=== PATIENT | male | born 1995 | race Caucasian/White ===

== ENCOUNTER → 2017-04-23 | Outpatient (CLI) | payer BC ==
--- NOTE | 2017-04-23 13:10 | REP ---
Clinical: Shortness of breath. Technique: PA and lateral. Comparison: None. Findings: Mediastinum and cardiac silhouette are normal. Ill-defined increased perihilar markings and suspected scattered peribronchial thickening may reflect underlying bronchitis and/or reactive airway disease. No focal consolidation, effusion, or pneumothorax. Skeletal structures are intact. Impression: Cannot exclude bronchitis versus reactive airway disease. No focal consolidation. Signed by Drew Perez MD 04/23/2017 01:02 P
--- NOTE | 2017-04-23 13:54 | REP ---
Cervical spine series: Seven views. History: Tingling in the hands. Frontal neck soreness. No comparison imaging. Findings: Lateral views done in flexion/extension and neutral position show preserved vertebral body heights and normal alignment. No subluxation or instability is seen. Disc spaces are maintained. Oblique radiographs demonstrate intact neural foramina and normally aligned facets bilaterally at each cervical level. AP and open mouth odontoid views are unremarkable. Impression: Negative cervical spine radiographs. Signed by Tremayne White MD 04/23/2017 03:51 P
== END ==
LOC: M WUC 12:37
PROVIDERS: ATTEND Nurse Practitioner Family
DX: R06.02 Shortness of breath (principal); R20.2 Paresthesia of skin

== ENCOUNTER 2019-11-16 12:10 | Emergency (ER) | payer BC ==
[~2019-11-16] VITALS: Ht 172.7 cm; Wt 80.1 kg
[2019-11-16 12:10] VITALS: BP 126/83
[2019-11-16] MEDS ORDERED: VENTAER INH (12:40)
== END 2019-11-16 12:51 | disposition home or self-care (01) ==
LOC: M ED 12:10
DX: J02.9 Acute pharyngitis, unspecified (principal); J98.01 Acute bronchospasm; J45.909 Unspecified asthma, uncomplicated

== ENCOUNTER → 2020-07-31 | Outpatient (CLI) | payer SELFPAY ==
[~2020-07-31] MED LIST: VENTAER INH
== END ==
LOC: M LABSMTC 13:08
PROVIDERS: ATTEND Pediatrics
DX: Z20.828 Contact with and (suspected) exposure to other viral communicable diseases (principal)

== ENCOUNTER → 2023-05-13 | Outpatient (REF) | payer OTHER ==
[2023-05-13 18:16] LABS: BASO # 0.1 10^3/uL (0.0-0.2); BASO % 0.8 % (0.0-1.0); EOS # 0.3 10^3/uL (0.0-0.5); EOS % 5.7 % (0.0-3.0); HEMOGLOBIN 15.5 g/dl (13.5-17.5); LYMPH % 32.8 % (24.0-44.0); MEAN CORPUSCULAR HEMOGLOBIN 31.4 pg (27.0-33.0); MEAN CORPUSCULAR VOLUME 95.3 fl (80.0-96.0); MONO # 0.4 10^3/uL (0.0-0.8); MONO % 7.2 % (2.0-8.0); NEUTROPHILS # 3.2 10^3/uL (1.5-8.5); NEUTROPHILS % 52.8 % (36.0-66.0); PLATELET COUNT, AUTOMATED 248 10^3/uL (150-450); RED BLOOD COUNT 4.93 10^6/uL (4.30-6.10)
[2023-05-13 18:44] LABS: FREE T4 0.85 NG/DL (0.89-1.76); LITHIUM LEVEL < 0.10 MMOL/L (1.0-1.20)
[2023-05-13 18:46] LABS: ALBUMIN 4.4 G/DL (3.2-5.2); ALKALINE PHOSPHATASE 89 U/L (46-116); ALT/SGPT 101 U/L (7.0-40); AST/SGOT 26 U/L (<34); BILIRUBIN,TOTAL 0.6 MG/DL (0.3-1.2); BLOOD UREA NITROGEN 14 MG/DL (9-23); CALCIUM LEVEL 9.2 MG/DL (8.5-10.1); CARBON DIOXIDE LEVEL 31 MMOL/L (20-31); CHLORIDE LEVEL 107 MMOL/L (98-107); CHOLESTEROL LEVEL 205 MG/DL (<200); CHOLESTEROL RISK RATIO 5.02 (<5); CREATININE FOR GFR 0.83 MG/DL (0.70-1.30); GLOMERULAR FILTRATION RATE > 60.0 (>60); GLUCOSE, FASTING 97 MG/DL (60-100); HDL CHOLESTEROL 40.8 MG/DL (>40); LDL CHOLESTEROL 149.8 MG/DL (<100); NON-HDL-C 164.2 MG/DL; POTASSIUM SERUM 5.1 MMOL/L (3.5-5.1); SODIUM LEVEL 143 MMOL/L (136-145); THYROID STIMULATING HORMONE 2.028 uIU/ML (0.55-4.78); TRIGLYCERIDES LEVEL 72 MG/DL (<150)
== END ==
LOC: M SFHCCLAY 10:16
PROVIDERS: ATTEND Nurse Practitioner Family
DX: F32.A Depression, unspecified (principal); R23.9 Unspecified skin changes; J45.20 Mild intermittent asthma, uncomplicated; F41.9 Anxiety disorder, unspecified; Z13.220 Encounter for screening for lipoid disorders

== ENCOUNTER → 2023-11-19 | Outpatient (REF) | payer OTHER ==
[2023-11-19 12:29] LABS: ALBUMIN 4.1 G/DL (3.2-5.2); ALKALINE PHOSPHATASE 76 U/L (46-116); ALT/SGPT 72 U/L (7.0-40); AST/SGOT 24 U/L (<34); BILIRUBIN,TOTAL 0.5 MG/DL (0.3-1.2); BLOOD UREA NITROGEN 12 MG/DL (9-23); CALCIUM LEVEL 8.5 MG/DL (8.5-10.1); CARBON DIOXIDE LEVEL 29 MMOL/L (20-31); CHLORIDE LEVEL 109 MMOL/L (98-107); CREATININE FOR GFR 0.84 MG/DL (0.70-1.30); GLOMERULAR FILTRATION RATE > 60.0 (>60); GLUCOSE, FASTING 108 MG/DL (60-100); POTASSIUM SERUM 4.4 MMOL/L (3.5-5.1); SODIUM LEVEL 143 MMOL/L (136-145); TOTAL PROTEIN 6.4 G/DL (5.7-8.2)
[2023-11-19 13:29] LABS: LITHIUM LEVEL 0.28 MMOL/L (1.0-1.20)
== END ==
LOC: M SFHCCLAY 07:07
PROVIDERS: ATTEND Nurse Practitioner Family
DX: F32.A Depression, unspecified (principal)

== ENCOUNTER → 2023-11-25 | Outpatient (REF) | payer OTHER ==
[2023-11-25 18:51] LABS: ALBUMIN 3.9 G/DL (3.2-5.2); ALKALINE PHOSPHATASE 77 U/L (46-116); ALT/SGPT 86 U/L (7.0-40); AST/SGOT 21 U/L (<34); BILIRUBIN,TOTAL 0.4 MG/DL (0.3-1.2); BLOOD UREA NITROGEN 13 MG/DL (9-23); CALCIUM LEVEL 8.9 MG/DL (8.5-10.1); CARBON DIOXIDE LEVEL 30 MMOL/L (20-31); CHLORIDE LEVEL 107 MMOL/L (98-107); CREATININE FOR GFR 0.75 MG/DL (0.70-1.30); GLOMERULAR FILTRATION RATE > 60.0 (>60); GLUCOSE, FASTING 95 MG/DL (60-100); POTASSIUM SERUM 4.4 MMOL/L (3.5-5.1); SODIUM LEVEL 142 MMOL/L (136-145); TOTAL PROTEIN 6.6 G/DL (5.7-8.2)
== END ==
LOC: M SFHCCLAY 09:51
PROVIDERS: ATTEND Nurse Practitioner Family
DX: R74.8 Abnormal levels of other serum enzymes (principal)

== ENCOUNTER → 2023-12-23 | Outpatient (CLI) | payer OTHER | LOC: M RAD 08:00 | PROVIDERS: ATTEND Nurse Practitioner Family | DX: K76.0 Fatty (change of) liver, not elsewhere classified (principal); R74.8 Abnormal levels of other serum enzymes ==

== ENCOUNTER 2024-05-07 02:51 | Emergency (ER) | payer OTHER ==
[~2024-05-07] VITALS: Ht 172.7 cm; Wt 80.0 kg
[2024-05-07] MEDS ORDERED: LITH150C (02:59)
[2024-05-07] MEDS ORDERED: SERTRALINE (02:59)
[2024-05-07 03:05] VITALS: TEMP 96.8
[2024-05-07] MEDS: KETOROLAC 30 MG/ML 1ML VIAL IV ONE (04:05)
[2024-05-07] MEDS: ONDANSETRON 4MG 2ML VIAL IV ONE (04:06)
[2024-05-07 04:10] LABS: BASO # 0.1 10^3/uL (0.0-0.2); BASO % 0.7 % (0.0-1.0); EOS # 0.3 10^3/uL (0.0-0.5); EOS % 2.6 % (0.0-3.0); HEMATOCRIT 44.5 % (42.0-52.0); HEMOGLOBIN 14.9 g/dl (13.5-17.5); LYMPH # 1.7 10^3/uL (1.5-5.0); LYMPH % 16.9 % (24.0-44.0); MEAN CORPUSCULAR HEMOGLOBIN 31.4 pg (27.0-33.0); MEAN CORPUSCULAR HGB CONC 33.5 g/dl (32.0-36.5); MEAN CORPUSCULAR VOLUME 93.9 fl (80.0-96.0); MONO # 0.6 10^3/uL (0.0-0.8); NEUTROPHILS # 7.2 10^3/uL (1.5-8.5); NEUTROPHILS % 71.9 % (36.0-66.0); PLATELET COUNT, AUTOMATED 232 10^3/uL (150-450); RED BLOOD COUNT 4.74 10^6/uL (4.30-6.10); WHITE BLOOD COUNT 10.1 10^3/uL (4.0-10.0)
[2024-05-07 04:42] LABS: ALBUMIN 3.9 G/DL (3.2-5.2); ALKALINE PHOSPHATASE 89 U/L (46-116); ALT/SGPT 62 U/L (7.0-40); AST/SGOT 16 U/L (<34); BILIRUBIN,DIRECT < 0.1 MG/DL (<0.4); BILIRUBIN,TOTAL 0.2 MG/DL (0.3-1.2); LIPASE 37 U/L (12-53); TOTAL PROTEIN 6.6 G/DL (5.7-8.2)
[2024-05-07 06:31] VITALS: BP 104/58; O2SAT 97
== END 2024-05-07 06:32 | disposition home or self-care (01) ==
LOC: M ED 02:51
DX: R10.9 Unspecified abdominal pain (principal); J45.909 Unspecified asthma, uncomplicated; K44.9 Diaphragmatic hernia without obstruction or gangrene; Z79.899 Other long term (current) drug therapy
CPT/HCPCS: 74176; 80047; 80076; 81001; 83690; 85025; 96374; 96375; 99284; J1885; J2405

== ENCOUNTER → 2024-11-30 | Outpatient (REF) | payer OTHER ==
[~2024-11-30] MED LIST changes: +LITH150C; +SERTRALINE
[2024-11-30 12:32] LABS: HEMOGLOBIN 15.1 g/dl (13.5-17.5); MEAN CORPUSCULAR HEMOGLOBIN 30.9 pg (27.0-33.0); MEAN CORPUSCULAR HGB CONC 32.8 g/dl (32.0-36.5); MEAN CORPUSCULAR VOLUME 94.3 fl (80.0-96.0); PLATELET COUNT, AUTOMATED 239 10^3/uL (150-450); RED BLOOD COUNT 4.88 10^6/uL (4.30-6.10); WHITE BLOOD COUNT 6.1 10^3/uL (4.0-10.0)
[2024-11-30 13:08] LABS: ALKALINE PHOSPHATASE 73 U/L (40-129); ALT/SGPT 53 U/L (7.0-40); AST/SGOT 16 U/L (<34); BILIRUBIN,TOTAL 0.5 MG/DL (0.3-1.2); BLOOD UREA NITROGEN 12 MG/DL (9-23); CALCIUM LEVEL 8.6 MG/DL (8.5-10.1); CARBON DIOXIDE LEVEL 29 MMOL/L (20-31); CHLORIDE LEVEL 107 MMOL/L (98-107); CHOLESTEROL LEVEL 236 MG/DL (<200); CHOLESTEROL RISK RATIO 5.98 (<5); CREATININE FOR GFR 0.79 MG/DL (0.70-1.30); GLOMERULAR FILTRATION RATE > 90.0 (>60); GLUCOSE, FASTING 90 MG/DL (60-100); HDL CHOLESTEROL 39.4 MG/DL (>40); LDL CHOLESTEROL 176.6 MG/DL (<100); NON-HDL-C 196.6 MG/DL; POTASSIUM SERUM 4.7 MMOL/L (3.5-5.1); SODIUM LEVEL 142 MMOL/L (136-145); TOTAL PROTEIN 6.6 G/DL (5.7-8.2); TRIGLYCERIDES LEVEL 100 MG/DL (<150)
[2024-11-30 13:10] LABS: LITHIUM LEVEL 0.14 MMOL/L (1.0-1.20)
== END ==
LOC: M SFHCCLAY 08:37
PROVIDERS: ATTEND Nurse Practitioner Family
DX: F32.A Depression, unspecified (principal); R74.8 Abnormal levels of other serum enzymes; Z13.220 Encounter for screening for lipoid disorders